=== PATIENT | female | born 1955 | race Caucasian/White ===

== ENCOUNTER 2017-12-28 18:30 | Inpatient (IN) | payer OTHER, MEDICARE ==
[2017-12-28 18:52] LABS: ADD MAN DIFF? NO
[2017-12-28 18:56] LABS: BASO % 1 % (0-3); EOS # 0.9 x10^3/uL (0.0-0.7); EOS % 12 % (0-3); HEMATOCRIT 43.4 % (36.0-47.0); HEMOGLOBIN 14.5 g/dL (12.0-15.5); LYMPH % 27 % (24-48); MEAN CORPUSCULAR HEMOGLOBIN 31 pg (25-35); MEAN CORPUSCULAR HGB CONC 34 g/dL (31-37); MEAN CORPUSCULAR VOLUME 91 fL (79-100); MONO # 0.8 x10^3/uL (0.0-1.1); MONO % 10 % (0-9); NEUT # 3.8 x10^3uL (1.8-7.7); NEUT % 50 % (31-73); PLATELET COUNT 232 x10^3/uL (140-400); RED BLOOD COUNT 4.75 x10^6/uL (3.50-5.40); RED CELL DISTRIBUTION WIDTH 14.2 % (11.5-14.5); WHITE BLOOD COUNT 7.5 x10^3/uL (4.0-11.0)
[2017-12-28] MEDS: methylPREDNISolone SOD SUCC PF 125 MG/2 ML VIAL. IV (19:01)
[2017-12-28 19:05] LABS: ANION GAP 0 (6-14); BLOOD UREA NITROGEN 6 mg/dL (7-20); BUN/CREATININE RATIO 8 (6-20); CALCIUM 8.6 mg/dL (8.5-10.1); CARBON DIOXIDE 37 mmol/L (21-32); CHLORIDE 105 mmol/L (98-107); CREATININE 0.8 mg/dL (0.6-1.0); GFR 72.7; GLUCOSE 89 mg/dL (70-99); POTASSIUM 4.2 mmol/L (3.5-5.1); SODIUM 142 mmol/L (136-145)
[2017-12-28 19:11] LABS: ALBUMIN 3.4 g/dL (3.4-5.0); ALK PHOS 52 U/L (46-116); ALT (SGPT) 16 U/L (14-59); AST (SGOT) 13 U/L (15-37); TOTAL BILIRUBIN 0.3 mg/dL (0.2-1.0); TOTAL PROTEIN 6.7 g/dL (6.4-8.2)
[2017-12-28 19:13] LABS: TROPONINI 0.023 ng/mL (0.000-0.055)
[2017-12-28 19:16] LABS: NT-PRO BNP 154 pg/mL (0-124)
[2017-12-28 19:40] LABS: LACTIC ACID 0.5 mmol/L (0.4-2.0)
[2017-12-28] MEDS: AZITHROMYCIN 250 MG TABLET. PO (19:57)
[2017-12-28] MEDS ORDERED: ALBUTEROL SULFATE 2.5 MG/3 ML NEBU. NEB (20:00)
[2017-12-28 20:14] LABS: D-DIMER 1.55 ug/mlFEU (0.00-0.50)
[2017-12-28] MEDS: oxyCODONE/APAP 7.5/325 1 TAB TABLET PO (20:19)
[2017-12-28] MEDS ORDERED: NON FORMULARY ITEM (Budesonide/Formoterol Fumarate (Symbicort 160-4.5 Mcg Inhaler) 2 PUFF) IH (21:00)
[2017-12-28] MEDS ORDERED: BUDESONIDE 0.5 MG/2 ML NEBU. NEB (21:00)
[2017-12-28] MEDS: traZODone 50 MG TABLET. PO (21:33)
[2017-12-28] MEDS: clonazePAM 1 MG TABLET PO (21:34)
[2017-12-28] MEDS: SIMVASTATIN 20 MG TABLET PO (21:34)
[2017-12-28] MEDS: PRAZOSIN 1 MG CAPSULE. PO (21:34)
[2017-12-28] MEDS: BUDESONIDE 0.5 MG/2 ML NEBU. NEB (23:49)
[2017-12-29 00:16] LABS: BASE EXCESS ABG 4 mmol/L (-3-3); HCO3 ABG 32 mmol/L (21-28); PO2 ABG 89 mmHg (65-108); SAT O2 ABG 96 % (92-99)
[2017-12-29 00:21] LABS: PCO2 ABG 66 mmHg (35-46)
[2017-12-29] MEDS: IPRATRPIUM/ALBUTEROL 0.5/2.5MG 3 ML NEBU. NEB ×5 (04:36→20:04)
[2017-12-29] MEDS: oxyCODONE/APAP 7.5/325 1 TAB TABLET PO (04:38)
[2017-12-29] MEDS: BUDESONIDE 0.5 MG/2 ML NEBU. NEB ×2 (07:58→20:04)
[2017-12-29] MEDS ORDERED: IPRATRPIUM/ALBUTEROL 0.5/2.5MG 3 ML NEBU. NEB (08:00)
[2017-12-29] MEDS: VENLAFAXINE XR 37.5 MG CAP.ER.24H. PO (08:26)
[2017-12-29] MEDS: fentaNYL 25MCG/HR PATCH 1 PATCH PATCH.TD72 TD ×2 (08:27→08:34)
[2017-12-29] MEDS: methylPREDNISolone SOD SUCC PF 40 MG/ML VIAL. IV ×3 (08:28→20:36)
[2017-12-29] MEDS ORDERED: IBUPROFEN 600 MG TABLET. PO (09:00)
[2017-12-29] MEDS ORDERED: MORPHINE SULFATE 4 MG/ML DISP.SYRIN. IV (09:00)
[2017-12-29] MEDS ORDERED: HYDROCORTISONE 2.5% RECTAL CREAM 30GM TUBE. RC (09:00)
[2017-12-29] MEDS ORDERED: guaiFENesin DM 200MG/20MG 10 ML SYRUP PO (09:00)
[2017-12-29] MEDS ORDERED: TEMAZEPAM 7.5 MG CAPSULE PO (09:00)
[2017-12-29] MEDS: HYDROcodone/APAP 5/325MG 1 TAB TABLET PO (09:07)
[2017-12-29] MEDS ORDERED: BUDESONIDE 0.5 MG/2 ML NEBU. NEB (10:00)
[2017-12-29] MEDS: ENOXAPARIN 40 MG/0.4 ML SYRINGE. SQ (10:05)
[2017-12-29] MEDS: IOHEXOL 300 MG/ML 100ML VIAL. IV (10:15)
[2017-12-29 10:36] LABS: INFLUENZA A PATIENT NEGATIVE (NEGATIVE); INFLUENZA B PATIENT NEGATIVE (NEGATIVE); OBC FLU VALID
[2017-12-29] MEDS: LIDOCAINE (700MG/PATCH) PATCH. TD (11:15)
[2017-12-29] MEDS: FLUTICASONE 50MCG/NASAL SPRAY 16GM BOTTLE. NS (11:15)
[2017-12-29] MEDS: CETIRIZINE HCL 10 MG TABLET. PO (11:15)
[2017-12-29] MEDS: PANTOPRAZOLE 40 MG TABLET.DR. PO (11:15)
[2017-12-29] MEDS: oxyCODONE/APAP 10/325 1 TAB TABLET PO (14:01)
[2017-12-29] MEDS: LACTOBACILLUS RHAMNOSUS GG 1 CAPSULE. PO (20:35)
[2017-12-29] MEDS: MONTELUKAST SODIUM 10 MG TABLET. PO (20:35)
[2017-12-29] MEDS: PRAZOSIN 1 MG CAPSULE. PO (20:35)
[2017-12-29] MEDS: SIMVASTATIN 20 MG TABLET PO (20:35)
[2017-12-29] MEDS: clonazePAM 1 MG TABLET PO (20:36)
[2017-12-29] MEDS: traZODone 50 MG TABLET. PO (20:36)
[2017-12-30] MEDS: IPRATRPIUM/ALBUTEROL 0.5/2.5MG 3 ML NEBU. NEB ×4 (07:29→20:28)
[2017-12-30] MEDS: BUDESONIDE 0.5 MG/2 ML NEBU. NEB ×2 (07:30→20:28)
[2017-12-30] MEDS: PANTOPRAZOLE 40 MG TABLET.DR. PO (07:48)
[2017-12-30] MEDS: LACTOBACILLUS RHAMNOSUS GG 1 CAPSULE. PO ×2 (07:48→20:48)
[2017-12-30] MEDS: CETIRIZINE HCL 10 MG TABLET. PO (07:48)
[2017-12-30] MEDS: VENLAFAXINE XR 37.5 MG CAP.ER.24H. PO (07:48)
[2017-12-30] MEDS: methylPREDNISolone SOD SUCC PF 40 MG/ML VIAL. IV ×3 (07:49→20:50)
[2017-12-30] MEDS: FLUTICASONE 50MCG/NASAL SPRAY 16GM BOTTLE. NS (07:51)
[2017-12-30] MEDS: LIDOCAINE (700MG/PATCH) PATCH. TD (07:51)
[2017-12-30] MEDS: ENOXAPARIN 40 MG/0.4 ML SYRINGE. SQ (10:10)
[2017-12-30] MEDS: oxyCODONE/APAP 10/325 1 TAB TABLET PO ×2 (11:39→19:28)
[2017-12-30] MEDS: MONTELUKAST SODIUM 10 MG TABLET. PO (20:48)
[2017-12-30] MEDS: clonazePAM 1 MG TABLET PO (20:48)
[2017-12-30] MEDS: SIMVASTATIN 20 MG TABLET PO (20:48)
[2017-12-30] MEDS: traZODone 50 MG TABLET. PO (20:49)
[2017-12-30] MEDS: PRAZOSIN 1 MG CAPSULE. PO (20:49)
[2017-12-31] MEDS: PANTOPRAZOLE 40 MG TABLET.DR. PO (07:44)
[2017-12-31] MEDS: oxyCODONE/APAP 10/325 1 TAB TABLET PO ×2 (07:44→12:38)
[2017-12-31] MEDS: IPRATRPIUM/ALBUTEROL 0.5/2.5MG 3 ML NEBU. NEB ×2 (07:52→11:53)
[2017-12-31] MEDS: BUDESONIDE 0.5 MG/2 ML NEBU. NEB (07:52)
[2017-12-31] MEDS: VENLAFAXINE XR 37.5 MG CAP.ER.24H. PO (08:49)
[2017-12-31] MEDS: LACTOBACILLUS RHAMNOSUS GG 1 CAPSULE. PO (08:49)
[2017-12-31] MEDS: CETIRIZINE HCL 10 MG TABLET. PO (08:49)
[2017-12-31] MEDS: LIDOCAINE (700MG/PATCH) PATCH. TD (08:50)
[2017-12-31] MEDS: methylPREDNISolone SOD SUCC PF 40 MG/ML VIAL. IV (08:50)
[2017-12-31] MEDS: FLUTICASONE 50MCG/NASAL SPRAY 16GM BOTTLE. NS (08:50)
[2017-12-31] MEDS: ENOXAPARIN 40 MG/0.4 ML SYRINGE. SQ (10:20)
[2017-12-31 22:12] LABS: MRSA BY PCR Negative (Negative)
[2018-01-01] MEDS ORDERED: predniSONE 20 MG TABLET PO (09:00)
== END 2017-12-31 13:30 | disposition home or self-care (01) | DRG 189 ==
LOC: ER 18:30 → 2 NORTH 20:37
PROC: 5A09357 Assistance with Respiratory Ventilation, Less than 24 Consecutive Hours, Continuous Positive Airway Pressure (ICD-10-PCS; 2017-12-28)
PROC: 5A09357 Assistance with Respiratory Ventilation, Less than 24 Consecutive Hours, Continuous Positive Airway Pressure (ICD-10-PCS; principal; 2017-12-29)
DX: J96.21 Acute and chronic respiratory failure with hypoxia (principal); J44.0 Chronic obstructive pulmonary disease with (acute) lower respiratory infection; Z99.81 Dependence on supplemental oxygen; J44.1 Chronic obstructive pulmonary disease with (acute) exacerbation; I10 Essential (primary) hypertension; Z82.49 Family history of ischemic heart disease and other diseases of the circulatory system; K21.9 Gastro-esophageal reflux disease without esophagitis; M54.9 Dorsalgia, unspecified; G89.29 Other chronic pain; M19.90 Unspecified osteoarthritis, unspecified site; G47.33 Obstructive sleep apnea (adult) (pediatric); F17.200 Nicotine dependence, unspecified, uncomplicated; J20.9 Acute bronchitis, unspecified; Z83.3 Family history of diabetes mellitus; Z71.6 Tobacco abuse counseling; Z88.1 Allergy status to other antibiotic agents; Z88.8 Allergy status to other drugs, medicaments and biological substances; Z80.1 Family history of malignant neoplasm of trachea, bronchus and lung; Z88.5 Allergy status to narcotic agent
CPT/HCPCS: 36415; 36600; 71045; 73701; 80053; 82805; 83605; 83880; 84484; 85025; 85379; 85610; 87040; 87641; 87804; 87804-59; 93005; 93970; 94640; 94660; 94760; 96374; 97116-GP; 97161-GP; 97166-GO; 99285; 99285-25; J1650; J2920; J2930; J7620; J7626; Q0144; Q9967

== ENCOUNTER 2018-08-06 10:32 | Emergency (ER) | payer OTHER ==
[~2018-08-06] VITALS: Ht 170.2 cm; Wt 68.0 kg
[~2018-08-06 10:32] MED LIST: ALEN70TA3 PO; ALPR0.5T6 PO; ATROVENT HFA12.9 GM IH; BENZ200C47 PO; BREX2TAB PO; BUDE10.2 IH; CLON1TAB11 PO; DOXY100T PO; DULO30CA43 PO; FENT1PAT15 TP; HYDR30CR60 RC; IBUP-1007 PO; LEVO500T59 PO; LORA1TAB PO; OXYC1TAB19 PO; OXYC1TAB22 PO; PRAZ2CAP2 PO; PRED-220 PO; PRED20TA PO; ROFL500T7 PO; SIMV20TA3 PO; TRAZ150T49 PO; UMEC1DIS IH; VENL37.57 PO; VENTOLIN HFA18 GM INH; VORT10TA PO
[2018-08-06] MEDS ORDERED: IV NORMAL SALINE 1000ML BAG 1,000 ML IV SCH (10:53)
[2018-08-06] MEDS ORDERED: IPRATRPIUM/ALBUTEROL 0.5/2.5MG 3 ML NEBU. NEB ONE (11:00)
[2018-08-06] MEDS ORDERED: methylPREDNISolone SOD SUCC PF 125 MG/2 ML VIAL. IV ONE (11:00)
--- NOTE | 2018-08-06 11:10 | PHYS DOC ---
Past Medical History Past Medical History: COPD, Depression, Sciatica Additional Past Medical Histor: "BACK PROBLEMS", TREMORS, EMPHYSEMA Past Surgical History: Other Additional Past Surgical Histo: breast tumor removal Smoking: Cigarettes, 1 Pack Per Day Alcohol Use: None Drug Use: None Adult General Chief Complaint Chief Complaint: SHORTNESS OF BREATH HPI HPI Pt is a 63 y/o WF who has a past Hx of COPD who presents to the ED for evaluation via EMS. She states that for the past several days she has had increasing SOB, along with a non-productive cough. She denies any chest pain, or pleuritic pain, fevers or chills. She has not had any other painful areas, has not had any abdominal pain, nausea, vomiting, diarrhea, palpitations, orthopnea. Unfortunately, she continues to smoke. She did receive a DuoNeb via EMS. There are no other alleviating or exacerbating factors to the patient's symptoms. She is noted to have an oxygenation saturation of 97% on room air upon arrival, but states that she does wear oxygen 4 L at home chronically. Review of Systems Review of Systems Constitutional: Denies fever or chills [] Eyes: Denies change in visual acuity, redness, or eye pain [] HENT: Denies nasal congestion or sore throat [] Respiratory: No additional information not addressed in HPI [] Cardiovascular: No additional information not addressed in HPI [] GI: Denies abdominal pain, nausea, vomiting, bloody stools or diarrhea [] : Denies dysuria or hematuria [] Musculoskeletal: Denies back pain or joint pain [] Integument: Denies rash or skin lesions [] Neurologic: Denies headache, focal weakness or sensory changes [] Endocrine: Denies polyuria or polydipsia [] Psychiatric: Reports anxiety, denies depression or suicidal ideation. All other systems were reviewed and found to be within normal limits, except as documented in this note. Current Medications Current Medications Current Medications Medications (Trade) Dose Ordered Sig/Deysi Start Time Stop Time Status Last Admin Dose Admin Albuterol/ Ipratropium (Duoneb) 3 ml 1X ONCE 08/06/18 11:00 08/06/18 11:09 DC 08/06/18 11:14 3 ML Lorazepam (Ativan) 1 mg 1X ONCE 08/06/18 11:00 08/06/18 11:09 DC 08/06/18 11:39 1 MG Methylprednisolone Sodium Succinate (SOLU-Medrol 125MG VIAL) 60 mg 1X ONCE 08/06/18 11:00 08/06/18 11:09 DC 08/06/18 11:41 60 MG Sodium Chloride 1,000 ml @ 100 mls/hr Q10H 08/06/18 10:53 08/06/18 20:52 08/06/18 11:36 100 MLS/HR Allergies Allergies Allergies Coded Allergies Type Severity Reaction Last Updated Verified amoxicillin Adverse Reaction Mild gi upset 04/20/16 Yes clavulanic acid Adverse Reaction Mild gi upset 04/20/16 Yes doxycycline Adverse Reaction Mild gi upset 04/20/16 Yes Physical Exam Physical Exam PHYSICAL EXAM: CONSTITUTIONAL: Well developed, well nourished HEAD: normocephalic, atraumatic EENT: PERRL, EOMI. Conjunctivae normal color, sclerae non-icteric; moist mucous membranes. NECK: Supple, non-tender; no meningismus. LUNGS: There are diffuse coarse expiratory wheezes, scattered all lung knox, with no rales or rhonchi, breathing even and unlabored. Normal air movement. HEART: Regular rate and rhythm, no murmur CHEST: No deformity; non-tender ABDOMEN: The abdomen is soft, and non-tender, no masses or bruits. EXTREM: Normal ROM; no deformity, no calf tenderness. Normal pulses palpable in all extremities. There is no pedal edema. SKIN: No rash; no diaphoresis NEURO: Alert; normal speech and cognition; CN's grossly intact; strength grossly intact without focal deficit. BACK: No CVA TTP. PSYCHIATRIC: The patient does exhibit an anxious affect. Current Patient Data Vital Signs Vital Signs Date Time Temp Pulse Resp B/P (MAP) Pulse Ox O2 Delivery O2 Flow Rate FiO2 08/06/18 11:35 74 28 116/62 (80) 94 Room Air 08/06/18 10:41 97.8 97.8 Lab Values Laboratory Tests Test 08/06/18 11:00 White Blood Count 16.2 x10^3/uL (4.0-11.0) H Red Blood Count 4.71 x10^6/uL (3.50-5.40) Hemoglobin 14.5 g/dL (12.0-15.5) Hematocrit 42.6 % (36.0-47.0) Mean Corpuscular Volume 91 fL (79-100) Mean Corpuscular Hemoglobin 31 pg (25-35) Mean Corpuscular Hemoglobin Concent 34 g/dL (31-37) Red Cell Distribution Width 14.0 % (11.5-14.5) Platelet Count 256 x10^3/uL (140-400) Neutrophils (%) (Auto) 84 % (31-73) H Lymphocytes (%) (Auto) 10 % (24-48) L Monocytes (%) (Auto) 4 % (0-9) Eosinophils (%) (Auto) 1 % (0-3) Basophils (%) (Auto) 0 % (0-3) Neutrophils # (Auto) 13.6 x10^3uL (1.8-7.7) H Lymphocytes # (Auto) 1.7 x10^3/uL (1.0-4.8) Monocytes # (Auto) 0.7 x10^3/uL (0.0-1.1) Eosinophils # (Auto) 0.2 x10^3/uL (0.0-0.7) Basophils # (Auto) 0.1 x10^3/uL (0.0-0.2) Segmented Neutrophils % 80 % (35-66) H Band Neutrophils % 4 % (0-9) Lymphocytes % 9 % (24-48) L Monocytes % 6 % (0-10) Basophils % 1 % (0-3) Platelet Estimate Adequate (ADEQUATE) Sodium Level 142 mmol/L (136-145) Potassium Level 3.5 mmol/L (3.5-5.1) Chloride Level 105 mmol/L (98-107) Carbon Dioxide Level 26 mmol/L (21-32) Anion Gap 11 (6-14) Blood Urea Nitrogen 14 mg/dL (7-20) Creatinine 0.9 mg/dL (0.6-1.0) Estimated GFR (Cockcroft-Gault) 63.2 BUN/Creatinine Ratio 16 (6-20) Glucose Level 110 mg/dL (70-99) H Calcium Level 9.4 mg/dL (8.5-10.1) Total Bilirubin 0.6 mg/dL (0.2-1.0) Aspartate Amino Transferase (AST) 9 U/L (15-37) L Alanine Aminotransferase (ALT) 21 U/L (14-59) Alkaline Phosphatase 51 U/L (46-116) Creatine Kinase 21 U/L (26-192) L Creatine Kinase MB (Mass) 0.6 ng/mL (0.0-3.6) Creatine Kinase MB Relative Index % (0-4) Troponin I Quantitative < 0.017 ng/mL (0.000-0.055) YU-Ddz-M-Type Natriuretic Peptide 214 pg/mL (0-124) H Total Protein 6.4 g/dL (6.4-8.2) Albumin 3.5 g/dL (3.4-5.0) Albumin/Globulin Ratio 1.2 (1.0-1.7) Laboratory Tests 08/06/18 11:00 Laboratory Tests 08/06/18 11:00 EKG EKG [Normal sinus rhythm at a rate of 70 beats for minute, normal axis, normal intervals, there are no acute ischemic ST/T changes.] Radiology/Procedures Radiology/Procedures [PROCEDURE: CHEST PA & LATERAL CHEST PA LATERAL CLINICAL INDICATION: short of breath and weakness for several days COMPARISON: 04/12/2018 FINDINGS: Heart is normal in size. Lungs are hyperinflated with flattening of diaphragm. Multiple calcified nodular opacities are seen in the left midlung zone likely calcified granulomas or prior aspirated oral contrast. Lungs are clear of focal consolidation. Mild diffuse interstitial opacities are seen. No pneumothorax or pleural effusion. Visualized bony thorax is within normal limits. Most likely retained catheter fragments or wire are seen in the right proximal pulmonary arterial vasculature and right main pulmonary artery also seen on previous CT from 04/12/2018. IMPRESSION: 1. Findings of COPD. Superimposed mild interstitial infection not ruled out. ] Course & Med Decision Making Course & Med Decision Making Pertinent Labs and Imaging studies reviewed. (See chart for details) [1:10 PM: The patient's condition remains stable, she is feeling significantly better at this time. She appears in no distress with an oxygen saturation in the upper 90s on room air. She does wear oxygen at home. She states she was recently seen at and is currently on prednisone. This might explain her leukocytosis. She does not think she is on antibiotics. I discussed the importance of close follow-up with her kit assembler at , and return precautions in detail.] Dragon Disclaimer Dragon Disclaimer This electronic medical record was generated, in whole or in part, using a voice recognition dictation system. Departure Departure Impression: Primary Impression: COPD exacerbation Additional Impression: Anxiety Disposition: 01 HOME, SELF-CARE Condition: IMPROVED Referrals: MITZI PRICE MD (PCP) Patient Instructions: Anxiety and Panic Attacks, Chronic Obstructive Pulmonary Disease Additional Instructions: Continue using your nebulizer machine every 6 hours, as needed for difficulty breathing. Continue taking your previously prescribed steroids. Return to medical care for any new, or worsening symptoms, development of increasing difficulty breathing, fevers, chills, nausea, vomiting. Scripts Azithromycin (AZITHROMYCIN TABLET) 250 Mg Tablet 1 PKG PO UD, #6 TAB Prov: VALERIE MARROQUIN MD 08/06/18 Problem Qualifiers VALERIE MARROQUIN MD Aug 06, 2018 11:10
[2018-08-06 11:16] LABS: BASO # 0.1 x10^3/uL (0.0-0.2); BASO % 0 % (0-3); EOS # 0.2 x10^3/uL (0.0-0.7); EOS % 1 % (0-3); HEMATOCRIT 42.6 % (36.0-47.0); HEMOGLOBIN 14.5 g/dL (12.0-15.5); LYMPH # 1.7 x10^3/uL (1.0-4.8); LYMPH % 10 % (24-48); MEAN CORPUSCULAR HEMOGLOBIN 31 pg (25-35); MEAN CORPUSCULAR HGB CONC 34 g/dL (31-37); MEAN CORPUSCULAR VOLUME 91 fL (79-100); MONO # 0.7 x10^3/uL (0.0-1.1); MONO % 4 % (0-9); NEUT # 13.6 x10^3uL (1.8-7.7); NEUT % 84 % (31-73); PLATELET COUNT 256 x10^3/uL (140-400); RED BLOOD COUNT 4.71 x10^6/uL (3.50-5.40); WHITE BLOOD COUNT 16.2 x10^3/uL (4.0-11.0)
[2018-08-06 11:33] LABS: ALBUMIN 3.5 g/dL (3.4-5.0); ALBUMIN/GLOBULIN RATIO 1.2 (1.0-1.7); CALCIUM 9.4 mg/dL (8.5-10.1); CREATININE 0.9 mg/dL (0.6-1.0); GFR 63.2; POTASSIUM 3.5 mmol/L (3.5-5.1); TOTAL BILIRUBIN 0.6 mg/dL (0.2-1.0); TOTAL PROTEIN 6.4 g/dL (6.4-8.2)
[2018-08-06 11:43] LABS: CREATINE KINASE 21 U/L (26-192)
--- NOTE | 2018-08-06 11:50 | RAD ---
CHEST PA LATERAL CLINICAL INDICATION: short of breath and weakness for several days COMPARISON: 04/12/2018 FINDINGS: Heart is normal in size. Lungs are hyperinflated with flattening of diaphragm. Multiple calcified nodular opacities are seen in the left midlung zone likely calcified granulomas or prior aspirated oral contrast. Lungs are clear of focal consolidation. Mild diffuse interstitial opacities are seen. No pneumothorax or pleural effusion. Visualized bony thorax is within normal limits. Most likely retained catheter fragments or wire are seen in the right proximal pulmonary arterial vasculature and right main pulmonary artery also seen on previous CT from 04/12/2018. IMPRESSION: 1. Findings of COPD. Superimposed mild interstitial infection not ruled out. Electronically signed by: Wesley Espinoza DO (08/06/2018 11:46 AM) [facility]
[2018-08-06 12:12] LABS: % BANDS 4 % (0-9); % BASOS 1 % (0-3); % LYMPHS 9 % (24-48); % MONOS 6 % (0-10); % SEGS 80 % (35-66)
[2018-08-06 12:13] LABS: PLT ESTIMATE ADEQUATE (ADEQUATE)
[2018-08-06 12:30] VITALS: BP 108/71
[2018-08-06] MEDS ORDERED: AZIT250T6 PO (13:16)
--- NOTE | 2018-08-06 17:52 | EKG ---
[facility] [address] [place] [address] Test Date: 2018-08-06 Test Time: 10:42:58 Pat Name: KARENA PISANO Department: Room: Gender: F Heavy Mobile Equipment Repairer: : 1955 Requested By: VALERIE MARROQUIN Order Number: [id number] Reading MD: Fermin Riddle Measurements Intervals [place] Rate: 69 P: 56 [place]: 122 QRS: 55 QRSD: 94 T: 58 QT: 396 QTc: 430 Interpretive Statements SINUS RHYTHM LEFT ATRIAL ABNORMALITY Electronically Signed On 08-14-2018 8:07:47 TERRITORY SALES MANAGER MEDICAL by Fermin Riddle
[2018-08-14] MEDS ORDERED: ALBU2.5V5 IH (15:18)
[2018-08-14] MEDS ORDERED: SENN1TAB21 PO (15:18)
== END 2018-08-06 13:25 | disposition home or self-care (01) ==
LOC: ER 10:32
DX: J44.1 Chronic obstructive pulmonary disease with (acute) exacerbation (principal); F41.9 Anxiety disorder, unspecified; F17.210 Nicotine dependence, cigarettes, uncomplicated; F32.9 Major depressive disorder, single episode, unspecified; Z88.1 Allergy status to other antibiotic agents; Z88.8 Allergy status to other drugs, medicaments and biological substances
CPT/HCPCS: 36415; 71046; 80053; 82553; 83880; 84484; 85007; 85025; 93005; 94640; 96374; 96375; 99284; J2060; J2930; J7030; J7620

== ENCOUNTER 2018-10-16 10:29 | Inpatient (IN) | payer OTHER ==
[~2018-10-16] VITALS: Ht 170.2 cm; Wt 59.0 kg
[~2018-10-16 10:29] MED LIST changes: +ALBU2.5V5 IH; +AZIT250T6 PO; +FAMO20TA5 PO; +LACT1CAP19 PO; +Nicotine 21MG TD; +PRED50TA PO; +SENN1TAB62 PO
--- NOTE | 2018-10-16 10:54 | PHYS DOC ---
Past Medical History Past Medical History: COPD, Depression, Sciatica Additional Past Medical Histor: "BACK PROBLEMS", TREMORS, EMPHYSEMA Past Surgical History: Other Additional Past Surgical Histo: breast tumor removal Alcohol Use: None Drug Use: None Adult General Chief Complaint Chief Complaint: SHORTNESS OF BREATH HPI HPI Patient is a 63 year old was brought here for evaluation of trouble breathing , productive cough with green sputum for the last 3 days. Patient has history of COPD, she is on 4 L of oxygen at home, continued to smoke. Patient denies any chest pain. she denies any fever or chill. She denies any abdominal pain, no nausea vomiting. Patient feels weak and tired. Review of Systems Review of Systems Constitutional: Denies fever or chills [] Eyes: Denies change in visual acuity, redness, or eye pain [] HENT: Denies nasal congestion or sore throat [] Respiratory: Positive for cough, shortness of air Cardiovascular: No additional information not addressed in HPI [] GI: Denies abdominal pain, nausea, vomiting, bloody stools or diarrhea [] : Denies dysuria or hematuria [] Musculoskeletal: Denies back pain or joint pain [] Integument: Denies rash or skin lesions [] Neurologic: Denies headache, focal weakness or sensory changes [] Endocrine: Denies polyuria or polydipsia [] All other systems were reviewed and found to be within normal limits, except as documented in this note. Current Medications Current Medications Current Medications Medications (Trade) Dose Ordered Sig/Deysi Start Time Stop Time Status Last Admin Dose Admin Acetaminophen (Tylenol) 650 mg PRN Q4HRS PRN 10/16/18 12:15 10/17/18 12:14 Albuterol/ Ipratropium (Duoneb) 3 ml RTQID 10/16/18 16:00 10/17/18 15:59 Levofloxacin/ Dextrose 150 ml @ 100 mls/hr 1X ONCE 10/16/18 11:30 10/16/18 12:59 10/16/18 11:42 100 MLS/HR Methylprednisolone Sodium Succinate (SOLU-Medrol 125MG VIAL) 125 mg 1X ONCE 10/16/18 11:00 10/16/18 11:01 DC 10/16/18 11:42 125 MG Ondansetron HCl (Zofran) 4 mg PRN Q8HRS PRN 10/16/18 12:15 10/17/18 12:14 Potassium Chloride (Klor-Con) 40 meq 1X ONCE 10/16/18 11:45 10/16/18 11:46 DC Sodium Chloride 1,000 ml @ 100 mls/hr Q10H 10/16/18 12:10 10/17/18 12:09 Allergies Allergies Allergies Coded Allergies Type Severity Reaction Last Updated Verified amoxicillin Adverse Reaction Mild gi upset 04/20/16 Yes clavulanic acid Adverse Reaction Mild gi upset 04/20/16 Yes doxycycline Adverse Reaction Mild gi upset 04/20/16 Yes Physical Exam Physical Exam Constitutional: Well developed, well nourished, no acute distress, non-toxic appearance. [] HENT: Normocephalic, atraumatic, bilateral external ears normal, oropharynx moist, no oral exudates, nose normal. [] Eyes: PERRLA, EOMI, conjunctiva normal, no discharge. [] Neck: Normal range of motion, no tenderness, supple, no stridor. [] Cardiovascular:Heart rate regular rhythm, no murmur [] Lungs & Thorax: WHEEZING THROUGHOUT ALL LUNG CEJA,TACHYPNIC. Abdomen: Bowel sounds normal, soft, no tenderness, no masses, no pulsatile masses. [] Skin: Warm, dry, no erythema, no rash. [] Back: No tenderness, no CVA tenderness. [] Extremities: No tenderness, no cyanosis, no clubbing, ROM intact, no edema. [] Neurologic: Alert and oriented X 3, normal motor function, normal sensory function, no focal deficits noted. [] Psychologic: Affect normal, judgement normal, mood normal. [] Current Patient Data Vital Signs Vital Signs Date Time Temp Pulse Resp B/P (MAP) Pulse Ox O2 Delivery O2 Flow Rate FiO2 10/16/18 11:10 99 Nasal Cannula 4.0 10/16/18 10:30 98.5 92 20 155/93 (113) 98.5 Lab Values Laboratory Tests Test 10/16/18 10:50 White Blood Count 15.4 x10^3/uL (4.0-11.0) H Red Blood Count 4.77 x10^6/uL (3.50-5.40) Hemoglobin 14.2 g/dL (12.0-15.5) Hematocrit 43.6 % (36.0-47.0) Mean Corpuscular Volume 91 fL (79-100) Mean Corpuscular Hemoglobin 30 pg (25-35) Mean Corpuscular Hemoglobin Concent 33 g/dL (31-37) Red Cell Distribution Width 14.7 % (11.5-14.5) H Platelet Count 225 x10^3/uL (140-400) Neutrophils (%) (Auto) 68 % (31-73) Lymphocytes (%) (Auto) 22 % (24-48) L Monocytes (%) (Auto) 8 % (0-9) Eosinophils (%) (Auto) 1 % (0-3) Basophils (%) (Auto) 0 % (0-3) Neutrophils # (Auto) 10.5 x10^3uL (1.8-7.7) H Lymphocytes # (Auto) 3.4 x10^3/uL (1.0-4.8) Monocytes # (Auto) 1.3 x10^3/uL (0.0-1.1) H Eosinophils # (Auto) 0.2 x10^3/uL (0.0-0.7) Basophils # (Auto) 0.0 x10^3/uL (0.0-0.2) Prothrombin Time 13.5 SEC (11.7-14.0) Prothrombin Time INR 1.1 (0.8-1.1) PTT 22 SEC (24-38) L Sodium Level 142 mmol/L (136-145) Potassium Level 3.0 mmol/L (3.5-5.1) L Chloride Level 103 mmol/L (98-107) Carbon Dioxide Level 33 mmol/L (21-32) H Anion Gap 6 (6-14) Blood Urea Nitrogen 15 mg/dL (7-20) Creatinine 0.8 mg/dL (0.6-1.0) Estimated GFR (Cockcroft-Gault) 72.4 BUN/Creatinine Ratio 19 (6-20) Glucose Level 104 mg/dL (70-99) H Lactic Acid Level 3.0 mmol/L (0.4-2.0) H Calcium Level 9.2 mg/dL (8.5-10.1) Total Bilirubin 0.3 mg/dL (0.2-1.0) Aspartate Amino Transferase (AST) 14 U/L (15-37) L Alanine Aminotransferase (ALT) 40 U/L (14-59) Alkaline Phosphatase 63 U/L (46-116) Creatine Kinase 14 U/L (26-192) L Creatine Kinase MB (Mass) 0.9 ng/mL (0.0-3.6) Creatine Kinase MB Relative Index % (0-4) BO-Fsx-V-Type Natriuretic Peptide 408 pg/mL (0-124) H Total Protein 6.4 g/dL (6.4-8.2) Albumin 3.3 g/dL (3.4-5.0) L Albumin/Globulin Ratio 1.1 (1.0-1.7) Laboratory Tests 10/16/18 10:50 Laboratory Tests 10/16/18 10:50 EKG EKG EKG WAS READ BY THIS PHYSICIAN AT 1038, RATE OF 98 BPM, NO STEMI. SINUS RHYTHM. [] Radiology/Procedures Radiology/Procedures [facility] [address] [place] [address] IMAGING REPORT Signed PATIENT: KARENA PISANO ACCOUNT: [id number] : 1955 LOCATION: ER AGE: 63 SEX: F EXAM STATUS: REG ER ORD. PHYSICIAN: ADITYA DONOVAN DO REASON: soa, cough PROCEDURE: PORTABLE CHEST 1V EXAM: AP View of the chest DATE: 10/16/2018 10:52 AM INDICATION: Shortness of air, cough COMPARISON: 08/23/2018, 08/14/2018 FINDINGS: Calcified granulomas bilaterally most prominent within the and left mid lung. No lobar consolidation. Heart is not enlarged. Aorta is tortuous. Linear radiopaque densities, possibly catheter or wire fragments, particularly on prior CT. Emphysematous changes are seen. No pleural effusion or pneumothorax. IMPRESSION: 1. Minimal bibasilar patchy opacities possibly atelectasis. 2. Otherwise, no evidence for acute cardiopulmonary process. Electronically signed by: Hang Asif MD (10/16/2018 11:20 AM) [id number] DICTATED and SIGNED BY: HANG ASIF MD DATE: 10/16/18 1111 Course & Med Decision Making Course & Med Decision Making Pertinent Labs and Imaging studies reviewed. (See chart for details) [] Dragon Disclaimer Dragon Disclaimer This electronic medical record was generated, in whole or in part, using a voice recognition dictation system. Departure Departure Impression: Primary Impression: COPD exacerbation Additional Impressions: CAP (community acquired pneumonia) Sepsis Disposition: 09 ADMITTED INPATIENT Admitting Physician: Mya Limon Condition: IMPROVED Referrals: MITZI PRICE MD (PCP) Problem Qualifiers ADITYA DONOVAN DO Oct 16, 2018 10:54
[2018-10-16] MEDS ORDERED: methylPREDNISolone SOD SUCC PF 125 MG/2 ML VIAL. IV ONE (11:00)
[2018-10-16] MEDS ORDERED: IPRATRPIUM/ALBUTEROL 0.5/2.5MG 3 ML NEBU. NEB ONE (11:00)
[2018-10-16 11:15] LABS: BASO % 0 % (0-3); EOS # 0.2 x10^3/uL (0.0-0.7); EOS % 1 % (0-3); HEMATOCRIT 43.6 % (36.0-47.0); HEMOGLOBIN 14.2 g/dL (12.0-15.5); LYMPH # 3.4 x10^3/uL (1.0-4.8); LYMPH % 22 % (24-48); MEAN CORPUSCULAR HEMOGLOBIN 30 pg (25-35); MEAN CORPUSCULAR HGB CONC 33 g/dL (31-37); MEAN CORPUSCULAR VOLUME 91 fL (79-100); MONO # 1.3 x10^3/uL (0.0-1.1); MONO % 8 % (0-9); NEUT # 10.5 x10^3uL (1.8-7.7); NEUT % 68 % (31-73); PLATELET COUNT 225 x10^3/uL (140-400); RED BLOOD COUNT 4.77 x10^6/uL (3.50-5.40); RED CELL DISTRIBUTION WIDTH 14.7 % (11.5-14.5); WHITE BLOOD COUNT 15.4 x10^3/uL (4.0-11.0)
[2018-10-16 11:23] LABS: CALCIUM 9.2 mg/dL (8.5-10.1); CREATININE 0.8 mg/dL (0.6-1.0); GFR 72.4
--- NOTE | 2018-10-16 11:23 | RAD ---
EXAM: AP View of the chest DATE: 10/16/2018 10:52 AM INDICATION: Shortness of air, cough COMPARISON: 08/23/2018, 08/14/2018 FINDINGS: Calcified granulomas bilaterally most prominent within the and left mid lung. No lobar consolidation. Heart is not enlarged. Aorta is tortuous. Linear radiopaque densities, possibly catheter or wire fragments, particularly on prior CT. Emphysematous changes are seen. No pleural effusion or pneumothorax. IMPRESSION: 1. Minimal bibasilar patchy opacities possibly atelectasis. 2. Otherwise, no evidence for acute cardiopulmonary process. Electronically signed by: Hang Anguiano MD (10/16/2018 11:20 AM) [id number]
[2018-10-16 11:27] LABS: PROTHROMBIN TIME PATIENT 13.5 SEC (11.7-14.0)
[2018-10-16 11:29] LABS: ALBUMIN 3.3 g/dL (3.4-5.0); ALBUMIN/GLOBULIN RATIO 1.1 (1.0-1.7); TOTAL BILIRUBIN 0.3 mg/dL (0.2-1.0); TOTAL PROTEIN 6.4 g/dL (6.4-8.2)
--- NOTE | 2018-10-16 11:31 | EKG ---
[facility] [address] [place] [address] Test Date: 2018-10-16 Test Time: 10:38:17 Pat Name: KARENA PISANO Department: Room: Gender: F Triage Assistant: : 1955 Requested By: ADITYA DONOVAN Order Number: [id number] Reading MD: Goyo Ibarra MD Measurements Intervals [place] Rate: 98 P: 71 [place]: 128 QRS: 62 QRSD: 84 T: 43 QT: 340 QTc: 436 Interpretive Statements SINUS RHYTHM Electronically Signed On 10-17-2018 11:08:40 MERCHANDISING REPRESENTATIVE by Goyo Ibarra MD
[2018-10-16 11:36] LABS: CREATINE KINASE 14 U/L (26-192)
[2018-10-16] MEDS ORDERED: POTASSIUM CHLORIDE 20 MEQ TABLET.ER. PO ONE (11:45)
[2018-10-16] MEDS ORDERED: IV NORMAL SALINE 1000ML BAG 1,000 ML IV ONE (12:00)
[2018-10-16] MEDS ORDERED: ONDANSETRON PF 4 MG/2 ML VIAL. IV PRN (12:15)
[2018-10-16] MEDS ORDERED: ACETAMINOPHEN 325 MG TABLET. PO PRN (12:15)
--- NOTE | 2018-10-16 14:24 | HP ---
ADMIT DATE: 10/16/2018 CHIEF COMPLAINT: Shortness of breath. HISTORY OF PRESENT ILLNESS: The patient is a pleasant 63-year-old female who continues to smoke. She has COPD, presented to the ER today with shortness of breath, rated at 9/10. She has associated weakness and subjective fevers, productive cough. She tried taking some home meds, but that did not work. Describes it as agonizing, worse with moving. I discussed the case with the ER physician. We are going to admit the patient and give her IV antibiotics, breathing treatments, oxygen and steroids and consult Pulmonary. PAST MEDICAL HISTORY: COPD, depression, back pain, sciatica, tremors, breast tumor resection. ALLERGIES: None. FAMILY HISTORY: Diabetes. SOCIAL HISTORY: She smokes. No drinking or drugs. MEDICATIONS: Reviewed, please refer to the MRAD. She is on albuterol and steroids. REVIEW OF SYSTEMS: GENERAL: No history of weight change, weakness or fevers. SKIN: No bruising, hair changes or rashes. EYES: No blurred, double or loss of vision. NOSE AND THROAT: No history of nosebleeds, hoarseness or sore throat. HEART: No history of palpitations, chest pain or shortness of breath on exertion. LUNGS: She complains of shortness of breath. GASTROINTESTINAL: Denies changes in appetite, nausea, vomiting, diarrhea or constipation. GENITOURINARY: No history of frequency, urgency, hesitancy or nocturia. NEUROLOGIC: Denies history of numbness, tingling, tremor or weakness. PSYCHIATRIC: No history of panic, anxiety or depression. ENDOCRINE: No history of heat or cold intolerance, polyuria or polydipsia. EXTREMITIES: Denies muscle weakness, joint pain, pain on walking or stiffness. PHYSICAL EXAMINATION: VITAL SIGNS: Temperature afebrile, pulse 90, respirations 18, blood pressure 140/91. GENERAL: She is alert. HEART: Normal S1, S2. LUNGS: Coarse throughout. ABDOMEN: Soft. EXTREMITIES: No edema. SKIN: No rashes, very thin. ENDOCRINE: No thyromegaly. LYMPHATICS: No cervical nodes. HEMATOPOIETIC: No bruising. PSYCHIATRIC: She is anxious. LABORATORY DATA: White count 15, hemoglobin 14 and platelets 225. Potassium is low at 3. ASSESSMENT AND PLAN: Respiratory failure with pneumonia. The patient has been admitted. We will start IV antibiotics, breathing treatments, oxygen, IV steroids. Consult Pulmonary. Home meds. Deep venous thrombosis prophylaxis.. Full code. Frequent labs. PROGNOSIS: Guarded. THEODORA MUSA DO DR: DIAN/jaylan JOB#: [id number] / [id number]
[2018-10-16 15:00] VITALS: BP 135/81
[2018-10-16] MEDS ORDERED: ALPRAZolam 0.5 MG TABLET PO PRN (15:30)
[2018-10-16] MEDS ORDERED: IBUPROFEN 200 MG TABLET. PO PRN (15:45)
[2018-10-16] MEDS ORDERED: NON FORMULARY ITEM (Albuterol Sulfate (Ventolin Hfa Inhaler) 2 PUFF) INH SCH (16:00)
[2018-10-16] MEDS ORDERED: IPRATRPIUM/ALBUTEROL 0.5/2.5MG 3 ML NEBU. NEB SCH (16:00)
[2018-10-16] MEDS: IPRATRPIUM/ALBUTEROL 0.5/2.5MG 3 ML NEBU. NEB SCH ×2 (16:00→19:36)
[2018-10-16] MEDS: NICOTINE 21MG PATCH. TD SCH (16:30)
[2018-10-16] MEDS: DULoxetine HCL 30 MG CAPSULE.DR PO SCH (16:30)
[2018-10-16] MEDS: IV NORMAL SALINE 1000ML BAG 1,000 ML IV SCH ×2 (16:57→22:10)
[2018-10-16] MEDS: LORazepam 1 MG TABLET PO SCH (16:58)
[2018-10-16] MEDS: oxyCODONE/APAP 10/325 1 TAB TABLET PO PRN (16:58)
[2018-10-16] MEDS ORDERED: ALBUTEROL SULFATE 2.5 MG/3 ML NEBU. INH PRN (17:00)
[2018-10-16] MEDS ORDERED: NON FORMULARY ITEM (Ipratropium Bromide (Atrovent Hfa) 2 PUFF) IH SCH (17:00)
--- NOTE | 2018-10-16 17:01 | NUR ---
The patient, KARENA PISANO, 63 y/o, F admitted by THEODORA MUSA III, DO, was given written information regarding hospital policies, unit procedures and contact persons. Valuables were checked, logged and left with pt. Oriented to unit and schedules. Pt verbalized that she doesn't want to be admitted. She wants to go back home on hospice. Pt has been emotional and states she is scared about dying at home alone. Pt also states she wants to stay the night, get fluids then be discharged in the morning. Pt's plans to D/C back to Hospice tomorrow and continue with her plan of care. Pt states she still wants to be a DNR. Provider notified, ICU CRN notified, msg left for hospice. Consult for palliative care in place and SS for D/C planning.
[2018-10-16 19:00] VITALS: BP 146/84
[2018-10-16] MEDS: BUDESONIDE 0.5 MG/2 ML NEBU. NEB SCH (19:36)
[2018-10-16] MEDS ORDERED: BENZONATATE 100 MG CAPSULE. PO PRN (21:00)
[2018-10-16] MEDS ORDERED: NON FORMULARY ITEM (Budesonide/Formoterol Fumarate (Symbicort 160-4.5 Mcg Inhaler) 2 PUFF) IH SCH (21:00)
[2018-10-16] MEDS: LACTOBACILLUS RHAMNOSUS GG 1 CAPSULE. PO SCH (21:03)
[2018-10-16] MEDS: SENNOSIDES/DOCUSATE 8.6/50MG TABLET. PO SCH (21:03)
[2018-10-16] MEDS: FAMOTIDINE 20 MG TABLET. PO SCH (21:04)
[2018-10-16] MEDS: PRAZOSIN 1 MG CAPSULE. PO SCH (21:04)
[2018-10-16] MEDS: traZODone 100 MG TABLET. PO SCH (21:04)
[2018-10-16] MEDS: SIMVASTATIN 20 MG TABLET PO SCH (21:04)
[2018-10-16 22:42] VITALS: BP 113/60
[2018-10-17] MEDS: oxyCODONE/APAP 10/325 1 TAB TABLET PO PRN ×2 (02:55→09:44)
[2018-10-17] MEDS: IV NORMAL SALINE 1000ML BAG 1,000 ML IV SCH (02:58)
[2018-10-17 03:00] VITALS: BP 139/77
[2018-10-17 07:00] VITALS: BP 91/45
[2018-10-17] MEDS: BUDESONIDE 0.5 MG/2 ML NEBU. NEB SCH ×2 (08:00→19:51)
[2018-10-17] MEDS: IPRATRPIUM/ALBUTEROL 0.5/2.5MG 3 ML NEBU. NEB SCH ×4 (08:02→19:51)
[2018-10-17] MEDS: DULoxetine HCL 30 MG CAPSULE.DR PO SCH (09:00)
[2018-10-17] MEDS: NON FORMULARY ITEM (Brexpiprazole (Rexulti) 2 MG) PO SCH (09:00)
[2018-10-17] MEDS: NON FORMULARY ITEM (Vortioxetine Hydrobromide (Trintellix) 10 MG) PO SCH (09:00)
[2018-10-17] MEDS: NICOTINE 21MG PATCH. TD SCH (09:00)
[2018-10-17] MEDS: SENNOSIDES/DOCUSATE 8.6/50MG TABLET. PO SCH ×3 (09:00→20:34)
[2018-10-17] MEDS: LACTOBACILLUS RHAMNOSUS GG 1 CAPSULE. PO SCH ×2 (09:00→20:27)
--- NOTE | 2018-10-17 09:10 | NUR ---
JUSTIN following pt for anticipated dc needs. Chart reviewed. JUSTIN phoned [facility] and left a voice mail to hospice JUSTIN requesting a call back regarding pt. Will continue to follow. Addendum: 10/17/18 at 1350 by MARIE ANDERSON JUSTIN phoned hospice and spoke with Negrita at intake regarding pt. Negrita reported she will contact pt's team and have them call JUSTIN. Discussed with RN and physician.
--- NOTE | 2018-10-17 09:28 | NUR ---
IP: Pt does not need to be in contact precautions. Her hx of mrsa has been resolved with 2 consecutive negatives.
[2018-10-17] MEDS: LORazepam 1 MG TABLET PO SCH (09:43)
[2018-10-17 10:04] LABS: BILIRUBIN,URINE NEGATIVE (NEG); CLARITY,URINE CLOUDY; COLOR,URINE YELLOW; NITRITE,URINE NEGATIVE (NEG); PROTEIN,URINE NEGATIVE (NEG-TRACE); UROBILINOGEN,URINE 0.2 mg/dL (0.2 mg/dL)
[2018-10-17 10:19] LABS: SQUAMOUS EPITHELIAL CELL,UR FEW /LPF
[2018-10-17 10:20] LABS: BACTERIA,URINE FEW /HPF (0-FEW)
[2018-10-17] MEDS ORDERED: POTASSIUM CHLORIDE 20 MEQ TABLET.ER. PO SCH (10:45)
[2018-10-17 11:00] VITALS: BP 94/45
[2018-10-17] MEDS: predniSONE 10 MG TABLET PO SCH (12:14)
[2018-10-17 15:00] VITALS: BP 103/53
--- NOTE | 2018-10-17 15:52 | NUR ---
SW following pt. Spoke with Negrita at hospice. They are able to readmit pt as long as pt does not have f/u appointments to tx condition. RN ordered Palliative care to address goals of care. Will continue to follow.
--- NOTE | 2018-10-17 16:59 | NUR ---
Pt states she does not want to go home today. Decided she does want to be treated for pneumonia. Discussed with provider. Tx initiated. Continue to monitor
--- NOTE | 2018-10-17 18:50 | PDOC2 ---
PALLIATIVE CARE Palliative Care Note Palliative Care Consult requested by Dr. Michele to address goals of care/frequent admissions. Medical Assessment per medical record; COPD, pneumonia- depression, anxiety. Patient states she has daughter Austin who is supportive of care. Has been with Hospice but decided she didn't want to be alone and wanted to come to hospital. Tearful. Afraid to alone. Discussed Code Status; Patient requests DNR/DNI. Understands that she likely would without attempt at resuscitation. Discussed her concerns of being alone. She does have Medicaid which would allow her to live in a facility. Currently lives in an apartment with her boilers and pressure vessels inspector dog. Informed that hospice could continue to see her in a facility. She would like to have more discussion with her daughter Austin Plan: DRN/DNI. read and signed by patient----will need physician order and signature. Family meeting with daughter for further discussion. VIVI ESCOBAR Oct 17, 2018 18:50
--- NOTE | 2018-10-17 18:50 | PDOC ---
PROGRESS NOTES Chief Complaint Chief Complaint Acute COPD exacerbation Recurrent pneumonia? Small area of pleural thickening in the left lower lobe Emphysema with chronic hypoxic resp failure on 4L NCO2 continuous Chronic back pain on chronic opioids Depression Tobacco abuse Plan: consult PAT patient would like to explore the possibility of transitioning to hospice reassurance has been provided. continue current care with antibiotics and steroids. Vitals Vitals Vital Signs Date Time Temp Pulse Resp B/P (MAP) Pulse Ox O2 Delivery O2 Flow Rate FiO2 10/17/18 15:00 97.9 74 16 103/53 (70) 93 Nasal Cannula 4.0 97.9 Physical Exam Lungs: Wheezing Labs LABS Laboratory Tests Test 10/17/18 09:55 Urine Collection Type U bag Urine Color Yellow Urine Clarity Cloudy Urine pH 6.0 Urine Specific [place] 1.015 Urine Protein Negative mg/dL (NEG-TRACE) Urine Glucose (UA) 250 mg/dL (NEG) Urine Ketones (Stick) Negative mg/dL (NEG) Urine Blood Moderate (NEG) Urine Nitrite Negative (NEG) Urine Bilirubin Negative (NEG) Urine Urobilinogen Dipstick 0.2 mg/dL (0.2 mg/dL) Urine Leukocyte Esterase Negative (NEG) Urine RBC 3-5 /HPF (0-2) Urine WBC 5-10 /HPF (0-4) Urine Squamous Epithelial Cells Few /LPF Urine Bacteria Few /HPF (0-FEW) Urine Mucus Mod /LPF Review of Systems Review of Systems Pertinent as per history of present illness otherwise 14 point review of system is negative Assessment and Plan Assessmemt and Plan Problems Medical Problems: (1) CAP (community acquired pneumonia) Status: Acute (2) Sepsis Status: Acute Comment Review of Relevant I have reviewed the following items trae (where applicable) has been applied. Labs Laboratory Tests Test 10/16/18 10:50 10/16/18 16:25 10/17/18 09:55 White Blood Count 15.4 x10^3/uL (4.0-11.0) Red Blood Count 4.77 x10^6/uL (3.50-5.40) Hemoglobin 14.2 g/dL (12.0-15.5) Hematocrit 43.6 % (36.0-47.0) Mean Corpuscular Volume 91 fL (79-100) Mean Corpuscular Hemoglobin 30 pg (25-35) Mean Corpuscular Hemoglobin Concent 33 g/dL (31-37) Red Cell Distribution Width 14.7 % (11.5-14.5) Platelet Count 225 x10^3/uL (140-400) Neutrophils (%) (Auto) 68 % (31-73) Lymphocytes (%) (Auto) 22 % (24-48) Monocytes (%) (Auto) 8 % (0-9) Eosinophils (%) (Auto) 1 % (0-3) Basophils (%) (Auto) 0 % (0-3) Neutrophils # (Auto) 10.5 x10^3uL (1.8-7.7) Lymphocytes # (Auto) 3.4 x10^3/uL (1.0-4.8) Monocytes # (Auto) 1.3 x10^3/uL (0.0-1.1) Eosinophils # (Auto) 0.2 x10^3/uL (0.0-0.7) Basophils # (Auto) 0.0 x10^3/uL (0.0-0.2) Prothrombin Time 13.5 SEC (11.7-14.0) Prothromb Time International Ratio 1.1 (0.8-1.1) Activated Partial Thromboplast Time 22 SEC (24-38) Sodium Level 142 mmol/L (136-145) Potassium Level 3.0 mmol/L (3.5-5.1) Chloride Level 103 mmol/L (98-107) Carbon Dioxide Level 33 mmol/L (21-32) Anion Gap 6 (6-14) Blood Urea Nitrogen 15 mg/dL (7-20) Creatinine 0.8 mg/dL (0.6-1.0) Estimated GFR (Cockcroft-Gault) 72.4 BUN/Creatinine Ratio 19 (6-20) Glucose Level 104 mg/dL (70-99) Lactic Acid Level 3.0 mmol/L (0.4-2.0) 4.0 mmol/L (0.4-2.0) Calcium Level 9.2 mg/dL (8.5-10.1) Total Bilirubin 0.3 mg/dL (0.2-1.0) Aspartate Amino Transf (AST/SGOT) 14 U/L (15-37) Alanine Aminotransferase (ALT/SGPT) 40 U/L (14-59) Alkaline Phosphatase 63 U/L (46-116) Creatine Kinase 14 U/L (26-192) Creatine Kinase MB (Mass) 0.9 ng/mL (0.0-3.6) Creatine Kinase MB Relative Index % (0-4) Troponin I Quantitative 0.023 ng/mL (0.000-0.055) JD-Pnr-M-Type Natriuretic Peptide 408 pg/mL (0-124) Total Protein 6.4 g/dL (6.4-8.2) Albumin 3.3 g/dL (3.4-5.0) Albumin/Globulin Ratio 1.1 (1.0-1.7) Urine Collection Type U bag Urine Color Yellow Urine Clarity Cloudy Urine pH 6.0 Urine Specific [place] 1.015 Urine Protein Negative mg/dL (NEG-TRACE) Urine Glucose (UA) 250 mg/dL (NEG) Urine Ketones (Stick) Negative mg/dL (NEG) Urine Blood Moderate (NEG) Urine Nitrite Negative (NEG) Urine Bilirubin Negative (NEG) Urine Urobilinogen Dipstick 0.2 mg/dL (0.2 mg/dL) Urine Leukocyte Esterase Negative (NEG) Urine RBC 3-5 /HPF (0-2) Urine WBC 5-10 /HPF (0-4) Urine Squamous Epithelial Cells Few /LPF Urine Bacteria Few /HPF (0-FEW) Urine Mucus Mod /LPF Laboratory Tests Test 10/17/18 09:55 Urine Collection Type U bag Urine Color Yellow Urine Clarity Cloudy Urine pH 6.0 Urine Specific [place] 1.015 Urine Protein Negative mg/dL (NEG-TRACE) Urine Glucose (UA) 250 mg/dL (NEG) Urine Ketones (Stick) Negative mg/dL (NEG) Urine Blood Moderate (NEG) Urine Nitrite Negative (NEG) Urine Bilirubin Negative (NEG) Urine Urobilinogen Dipstick 0.2 mg/dL (0.2 mg/dL) Urine Leukocyte Esterase Negative (NEG) Urine RBC 3-5 /HPF (0-2) Urine WBC 5-10 /HPF (0-4) Urine Squamous Epithelial Cells Few /LPF Urine Bacteria Few /HPF (0-FEW) Urine Mucus Mod /LPF Microbiology 10/16/18 Blood Culture - Preliminary, Resulted NO GROWTH AFTER 1 DAY Medications Current Medications Methylprednisolone Sodium Succinate (SOLU-Medrol 125MG VIAL) 125 mg 1X ONCE IV Last administered on 10/16/18at 11:42; Start 3/6/19 at 11:00; Stop 10/16/18 at 11:01; Status DC Albuterol/ Ipratropium (Duoneb) 3 ml 1X ONCE NEB Last administered on at 11:09; Start 10/16/18 at 11:00; Stop 10/16/18 at 11:01; Status DC Levofloxacin/ Dextrose 150 ml @ 100 mls/hr 1X ONCE IV Last administered on 10/16/18at 11:42; Start 10/16/18 at 11:30; Stop 10/16/18 at 12:59; Status DC Potassium Chloride (Klor-Con) 40 meq 1X ONCE PO Last administered on 10/16/18at 12:35; Start 10/16/18 at 11:45; Stop 10/16/18 at 11:46; Status DC Sodium Chloride 1,000 ml @ 1,000 mls/hr 1X ONCE IV Last administered on at 12:15; Start 10/16/18 at 12:00; Stop 10/16/18 at 12:59; Status DC Ondansetron HCl (Zofran) 4 mg PRN Q8HRS PRN IV NAUSEA/VOMITING; Start 10/16/18 at 12:15; Stop 10/17/18 at 12:14; Status DC Sodium Chloride 1,000 ml @ 100 mls/hr Q10H IV Last administered on 10/17/18at 02 :58; Start 10/16/18 at 12:10; Stop 10/17/18 at 10:34; Status DC Acetaminophen (Tylenol) 650 mg PRN Q4HRS PRN PO FEVER; Start 10/16/18 at 12:15; Stop 10/17/18 at 12:14; Status DC Albuterol/ Ipratropium (Duoneb) 3 ml RTQID NEB Last administered on 10/16/18at 15 :15; Start 10/16/18 at 16:00; Stop 10/16/18 at 16:00; Status DC Albuterol Sulfate (Ventolin Neb Soln) 2.5 mg PRN QID PRN INH SHORTNESS OF BREATH; Start 10/16/18 at 17:00 Alprazolam (Xanax) 0.5 mg PRN TID PRN PO ANXIETY / AGITATION Last administered on 10/16/18 21:08; Start 10/16/18 at 15:30 Duloxetine HCl (Cymbalta) 90 mg DAILY PO ; Start 10/16/18 at 16:30 Famotidine (Pepcid) 20 mg QHS PO Last administered on 10/16/18 21:04; Start 10/16/18 at 21:00 Lactobacillus Rhamnosus (Culturelle) 1 cap BID PO Last administered on 21:03; Start 10/16/18 at 21:00 Lorazepam (Ativan) 1 mg DAILY PO Last administered on 10/17/18 09:43; Start 10/16/18 at 16:30 Oxycodone/ Acetaminophen (Percocet 10/325) 1 tab PRN Q6HRS PRN PO PAIN Last administered on 10/17/18 09:44; Start 10/16/18 at 15:30 Senna/Docusate Sodium (Senna Plus) 1 tab BID PO Last administered on 10/16/18 21:03; Start 10/16/18 at 21:00 Non-Formulary Medication (Albuterol Sulfate (Ventolin Hfa Inhaler)) 2 puff Q4HRS INH ; Start 10/16/18 at 16:00; Status UNV Non-Formulary Medication (Alendronate Sodium (Fosamax)) 1 tab WEEKLY PO ; Start 10/23/18 at 09:00; Status UNV Benzonatate (Tessalon Perle) 100 mg PRN TID PRN PO COUGH; Start 10/16/18 at 21: 00 Non-Formulary Medication (Brexpiprazole (Rexulti)) 2 mg DAILY PO ; Start at 09:00; Status UNV Non-Formulary Medication (Budesonide/ Formoterol Fumarate (Symbicort 160-4.5 Mcg Inhaler)) 2 puff BID IH ; Start 10/16/18 at 21:00; Status UNV Ibuprofen (Motrin) 600 mg PRN Q6HRS PRN PO INFLAMMATION Last administered on 21:08; Start 10/16/18 at 15:45 Non-Formulary Medication (Ipratropium [place] (Atrovent Hfa)) 2 puff QID IH ; Start 10/16/18 at 17:00; Status UNV Prazosin HCl (Minipress) 2 mg QHS PO Last administered on 10/16/18 21:04; Start 10/16/18 at 21:00 Simvastatin (Zocor) 20 mg HS PO Last administered on 10/16/18at 21:04; Start 10/16 at 21:00 Trazodone HCl (Desyrel) 300 mg QHS PO Last administered on 10/16/18at 21:04; Start 10/16/18 at 21:00 Non-Formulary Medication (Vortioxetine Hydrobromide (Trintellix)) 10 mg DAILY PO ; Start 10/17/18 at 09:00; Status UNV Nicotine (Nicoderm Cq 21mg) 1 patch DAILY TD ; Start 10/16/18 at 16:30 Albuterol/ Ipratropium (Duoneb) 3 ml RTQID NEB Last administered on 10/17/18at 14 :43; Start 10/16/18 at 16:00 Budesonide (Pulmicort) 0.5 mg RTBID NEB Last administered on 10/17/18at 08:00; Start 10/16/18 at 20:00 Levofloxacin/ Dextrose 150 ml @ 100 mls/hr Q24H IV Last administered on 11:52; Start 10/17/18 at 11:00 Prednisone (Prednisone) 50 mg DAILY PO Last administered on 10/17/18at 12:14; Start 10/17/18 at 11:30 Potassium Chloride (Klor-Con) 40 meq Q2H PO Last administered on 10/17/18at 11:51 ; Start 10/17/18 at 10:45; Stop 10/17/18 at 12:46; Status DC Active Scripts Active [Nicotine 21MG] 1 PATCH Patch 1 Patch TD DAILY 30 Days Prednisone 50 Mg Tablet 1 Tab PO DAILY 5 Days Levaquin (Levofloxacin) 500 Mg Tablet 1 Tab PO DAILY 7 Days Culturelle (Lactobacillus Rhamnosus Gg) 1 Each Cap.sprink 1 Cap PO BID 14 Days Famotidine 20 Mg Tablet 20 Mg PO QHS 30 Days Reported Albuterol Sulfate Neb Soln (Albuterol Sulfate) 2.5 Mg/3 Ml Vial.neb 3 Ml IH QID Senna Plus Tablet (Sennosides/Docusate Sodium) 1 Each Tablet 1 Tab PO BID Alprazolam 0.5 Mg Tablet 1 Tab PO TID PRN Duloxetine Hcl 30 Mg Capsule.dr 90 Mg PO DAILY Fosamax (Alendronate Sodium) 70 Mg Tablet 1 Tab PO WEEKLY Benzonatate 200 Mg Capsule 1 Cap PO TID PRN Percocet 10-325 Mg Tablet (Oxycodone/Acetaminophen) 1 Each Tablet 1 Tab PO PRN Q6HRS PRN Lorazepam 1 Mg Tablet 1 Mg PO DAILY Trintellix (Vortioxetine) 10 Mg Tablet 10 Mg PO DAILY Rexulti (Brexpiprazole) 2 Mg Tablet 2 Mg PO DAILY Prazosin Hcl 2 Mg Capsule 1 Cap PO QHS Simvastatin 20 Mg Tablet 20 Mg PO QHS Atrovent Hfa (Ipratropium [place]) 12.9 Gm Hfa.aer.ad 2 Puff IH QID Daliresp (Roflumilast) 500 Mcg Tablet 500 Mcg PO Ventolin Hfa Inhaler (Albuterol Sulfate) 18 Gm Hfa.aer.ad 2 Puff INH Q4HRS Ibuprofen 600 Mg Tablet 600 Mg PO PRN Q6HRS PRN Trazodone Hcl 150 Mg Tablet 300 Mg PO HS Symbicort 160-4.5 Mcg Inhaler (Budesonide/Formoterol Fumarate) 10.2 Gm Hfa.aer.ad 2 Puff IH BID Anoro Ellipta 62.5-25 Mcg Inh (Umeclidinium Brm/Vilanterol Tr) 1 Each Disk.w.dev 62.5 Each IH Vitals/I & O Vital Sign - Last 24 Hours 10/16/18 10/16/18 10/16/18 10/16/18 19:00 19:37 19:38 20:00 Temp 98.2 98.2 Pulse 94 Resp 15 B/P (MAP) 146/84 (104) Pulse Ox 100 95 95 O2 Delivery Nasal Cannula Nasal Cannula Nasal Cannula Nasal Cannula O2 Flow Rate 4.0 4.0 4.0 4.0 10/16/18 10/16/18 10/17/18 10/17/18 21:04 22:42 02:55 03:00 Temp 98.6 97.6 98.6 97.6 Pulse 94 69 86 Resp 15 18 20 B/P (MAP) 146/84 113/60 (77) 139/77 (97) Pulse Ox 100 96 O2 Delivery Nasal Cannula Nasal Cannula Nasal Cannula O2 Flow Rate 2.0 4.0 10/17/18 10/17/18 10/17/18 10/17/18 07:00 08:00 08:07 09:44 Temp 98.0 98.0 Pulse 70 Resp 16 18 B/P (MAP) 91/45 (60) Pulse Ox 95 93 O2 Delivery Nasal Cannula Nasal Cannula Room Air Nasal Cannula O2 Flow Rate 4.0 4.0 4.0 10/17/18 10/17/18 10/17/18 10/17/18 10:44 11:00 14:45 15:00 Temp 98.2 97.9 98.2 97.9 Pulse 93 74 Resp 22 18 16 B/P (MAP) 94/45 (61) 103/53 (70) Pulse Ox 92 94 93 O2 Delivery Nasal Cannula Nasal Cannula Room Air Nasal Cannula O2 Flow Rate 4.0 4.0 4.0 Intake and Output 10/16/18 10/16/18 10/17/18 14:59 22:59 06:59 Intake Total 300 ml 1200 ml Output Total 200 ml Balance 300 ml 1000 ml FLORENCIO ROSARIO MD Oct 17, 2018 18:50
[2018-10-17 19:00] VITALS: BP 116/63
[2018-10-17] MEDS: SIMVASTATIN 20 MG TABLET PO SCH (20:26)
[2018-10-17] MEDS: traZODone 100 MG TABLET. PO SCH (20:26)
[2018-10-17] MEDS: FAMOTIDINE 20 MG TABLET. PO SCH ×2 (20:26→20:34)
[2018-10-17] MEDS: PRAZOSIN 1 MG CAPSULE. PO SCH (20:26)
[2018-10-17 23:00] VITALS: BP 118/67
[2018-10-18 03:00] VITALS: BP 143/88
--- NOTE | 2018-10-18 06:27 | CONS ---
DATE OF CONSULTATION: 10/17/2018 ATTENDING PHYSICIAN: Dr. Limon. REASON FOR CONSULTATION: The patient seen in pulmonary consultation at the request of Dr. Limon for abnormal x-ray, hypoxemia. HISTORY OF PRESENT ILLNESS: The patient is a 63-year-old with a history of COPD, tobacco-dependent, depression, anxiety, who presented because she was more short of breath. She states that her nebulized machine at home was not working. She had a cough, productive of green sputum for the past 3 days. She had a chest x-ray revealing basilar atelectasis, which were mild. She denies fever or chills, no hemoptysis. She is up-to-date on her flu vaccination. PAST MEDICAL HISTORY: Chronic respiratory failure, COPD, tobacco-dependent, depression, sciatica. PAST SURGICAL HISTORY: Status post breast tumor removal. ALLERGIES: AUGMENTIN and DOXYCYCLINE. MEDICATIONS: List was reviewed. SOCIAL HISTORY: She continues to smoke, she has done so for 40 years. REVIEW OF SYSTEMS: As indicated above. Otherwise, the 10-point system was reviewed and negative. CURRENT MEDICATION: List was reviewed. PHYSICAL EXAMINATION: GENERAL: The patient got here for one time during my evaluation, she felt like she was going to . VITAL SIGNS: Her O2 saturation actually on room air was 98%. HEENT: Eyes, the sclerae were nonicteric. NECK: Jugular venous distention was not elevated. No lymphadenopathy. CHEST: Full expansion. LUNGS: Adequate airway flow with expiratory wheeze. CARDIOVASCULAR: Regular rate and rhythm with S1, S2, no S3. ABDOMEN: Soft, nontender, nondistended. EXTREMITIES: No clubbing, cyanosis or edema. NEUROLOGIC: The patient was awake, alert, following commands. A detailed neuro exam was not performed. LABORATORY DATA: Reviewed. White count was elevated. INR was 1.1. Electrolytes were noted. Potassium was low. Lactic acid level was elevated. IMPRESSION: 1. Acute exacerbation of chronic obstructive pulmonary disease. 2. Wneqq-wx-fololwm respiratory failure. 3. Anxiety and depression. 4. Abnormal x-ray. 5. Tobacco dependence. PLAN: 1. Continue current treatment with steroids, antibiotics. 2. Oxygen supplementation. 3. A 6-minute walk prior to discharge. 4. Spirometry. 5. Continue home medications. I do appreciate the privilege in sharing in the patient's care. JUDY NICK MD DR: Jun JOB#: [id number] / [id number]
[2018-10-18 07:00] VITALS: BP 135/75
[2018-10-18] MEDS: IPRATRPIUM/ALBUTEROL 0.5/2.5MG 3 ML NEBU. NEB SCH ×2 (07:53→11:29)
[2018-10-18] MEDS: BUDESONIDE 0.5 MG/2 ML NEBU. NEB SCH (07:54)
[2018-10-18] MEDS: LACTOBACILLUS RHAMNOSUS GG 1 CAPSULE. PO SCH (08:33)
[2018-10-18] MEDS: LORazepam 1 MG TABLET PO SCH (08:33)
[2018-10-18] MEDS: SENNOSIDES/DOCUSATE 8.6/50MG TABLET. PO SCH (08:33)
[2018-10-18] MEDS: predniSONE 10 MG TABLET PO SCH (08:34)
[2018-10-18] MEDS: DULoxetine HCL 30 MG CAPSULE.DR PO SCH (08:34)
[2018-10-18] MEDS: NICOTINE 21MG PATCH. TD SCH (08:51)
[2018-10-18] MEDS: NON FORMULARY ITEM (Vortioxetine Hydrobromide (Trintellix) 10 MG) PO SCH (09:00)
[2018-10-18] MEDS: NON FORMULARY ITEM (Brexpiprazole (Rexulti) 2 MG) PO SCH (09:00)
[2018-10-18 11:00] VITALS: BP 130/59
--- NOTE | 2018-10-18 11:10 | NUR ---
SW following pt. Spoke with pt at beside following up on her conversation with Palliative care. Pt reported she wants to go home with hospice. SW informed pt if she feels like she needs to go to a facility after going home she can request hospice agency to assist her. Pt verbalized understanding. Pt also reported she will have transportation. Physician notified for orders. MENDEZ SALCIDO.
[2018-10-18] MEDS ORDERED: LEVO500T59 PO (11:21)
[2018-10-18] MEDS ORDERED: PRED50TA PO (11:21)
--- NOTE | 2018-10-18 11:22 | SNU/HH DC ---
DISCHARGE ORDERS DISCHARGE INFORMATION: DISCHARGE DATE: Oct 18, 2018 FINAL DIAGNOSIS Problems Medical Problems: (1) CAP (community acquired pneumonia) Status: Acute (2) Sepsis Status: Acute CONDITION ON DISCHARGE: Stable HOSPICE: HOSPICE: Yes HOSPICE EVAL & TREAT: Yes POST DISCHARGE ORDERS: ACTIVITY ORDERS: Activity as tolerated WEIGHT BEARING STATUS: As tolerated DIET AFTER DISCHARGE: Cardiac TREATMENT/EQUIPMENT ORDERS: ADAPTIVE EQUIPMENT NEEDED: None RESPIRATORY EQUIPMENT NEEDED: Oxygen Physical Therapy For: Evalulation/Treatment Occupational Therapy For: Evaluation/Treatment Speech Language Pathology For: Evaluation/Treatment DISCHARGE MEDICATIONS: Home Meds Active Scripts Prednisone (PREDNISONE) 50 Mg Tablet, 1 TAB PO DAILY for copd for 5 Days, #5 TAB Prov:FLORENCIO ROSARIO MD 10/18/18 Levofloxacin (LEVAQUIN) 500 Mg Tablet, 1 TAB PO DAILY for cough/ copd for 5 Days , #5 TAB Prov:FLORENCIO ROSARIO MD 10/18/18 [Nicotine 21MG] 1 PATCH PATCH No Conflict Check, 1 PATCH TD DAILY for Nicotine dependence for 30 Days, #30 Prov:DAYANNA PHAM MD 08/25/18 Lactobacillus Rhamnosus Gg (CULTURELLE) 1 Each Cap.sprink, 1 CAP PO BID for supplement for 14 Days, #28 CAP Prov:JULIAN ORELLANA MD 08/17/18 Famotidine (FAMOTIDINE) 20 Mg Tablet, 20 MG PO QHS for stomach for 30 Days, #30 TAB Prov:JULAIN ORELLANA MD 08/17/18 Reported Medications Albuterol Sulfate (ALBUTEROL SULFATE NEB SOLN) 2.5 Mg/3 Ml Vial.neb, 3 ML IH QID for SOA 08/14/18 Sennosides/Docusate Sodium (SENNA PLUS TABLET) 1 Each Tablet, 1 TAB PO BID for constipation 08/14/18 Alprazolam (ALPRAZOLAM) 0.5 Mg Tablet, 1 TAB PO TID PRN for ANXIETY / AGITATION , #90 TAB 04/12/18 Duloxetine Hcl (DULOXETINE HCL) 30 Mg Capsule.dr, 90 MG PO DAILY, CAP 04/12/18 Alendronate Sodium (FOSAMAX) 70 Mg Tablet, 1 TAB PO WEEKLY, #4 TAB 11 Refills 04/12/18 Benzonatate (BENZONATATE) 200 Mg Capsule, 1 CAP PO TID PRN for COUGH, #30 CAP 04/12/18 Oxycodone/Apap 10-325 (PERCOCET 10-325 MG TABLET ) 1 Each Tablet, 1 TAB PO PRN Q6HRS PRN for PAIN, #40 TAB 04/12/18 Lorazepam (LORAZEPAM) 1 Mg Tablet, 1 MG PO DAILY, TAB 04/12/18 Vortioxetine Hydrobromide (TRINTELLIX) 10 Mg Tablet, 10 MG PO DAILY, TAB 04/12/18 Brexpiprazole (Rexulti) 2 Mg Tablet, 2 MG PO DAILY, TAB 04/12/18 Prazosin Hcl (PRAZOSIN HCL) 2 Mg Capsule, 1 CAP PO QHS, #30 CAP 2 Refills 04/20/16 Simvastatin (SIMVASTATIN) 20 Mg Tablet, 20 MG PO QHS, TAB 04/20/16 Ipratropium [place] (ATROVENT HFA) 12.9 Gm Hfa.aer.ad, 2 PUFF IH QID, #12.9 GM 5 Refills 04/20/16 Roflumilast (DALIRESP) 500 Mcg Tablet, 500 MCG PO 04/20/16 Albuterol Sulfate (VENTOLIN HFA INHALER) 18 Gm Hfa.aer.ad, 2 PUFF INH Q4HRS for FOR ASTHMA, INHALER 0 Refills 04/20/16 Ibuprofen (IBUPROFEN) 600 Mg Tablet, 600 MG PO PRN Q6HRS PRN for INFLAMMATION, TAB 04/20/16 Trazodone Hcl (TRAZODONE HCL) 150 Mg Tablet, 300 MG PO HS, #30 TAB 1 Refill 04/20/16 Budesonide/Formoterol Fumarate (SYMBICORT 160-4.5 MCG INHALER) 10.2 Gm Hfa.aer.ad, 2 PUFF IH BID, #10.6 GM 3 Refills 04/20/16 Umeclidinium Brm/Vilanterol Tr (ANORO ELLIPTA 62.5-25 MCG INH) 1 Each Disk.w.dev , 62.5 EACH IH 04/20/16 FLORENCIO ROSARIO MD Oct 18, 2018 11:22
--- NOTE | 2018-10-18 11:25 | PDOC3 ---
Discharge Summary Visit Information Date of Admission: Oct 16, 2018 Date of Discharge: Oct 18, 2018 Admitting Diagnosis: community acquired pneumonia Final Diagnosis Problems Medical Problems: (1) CAP (community acquired pneumonia) Status: Acute (2) Sepsis Status: Acute Brief Hospital Course Allergies Allergies Coded Allergies Type Severity Reaction Last Updated Verified amoxicillin Adverse Reaction Mild gi upset 04/20/16 Yes clavulanic acid Adverse Reaction Mild gi upset 04/20/16 Yes doxycycline Adverse Reaction Mild gi upset 04/20/16 Yes Vital Signs Vital Signs Date Time Temp Pulse Resp B/P (MAP) Pulse Ox O2 Delivery O2 Flow Rate FiO2 10/18/18 08:20 Nasal Cannula 4.0 10/18/18 07:00 97.6 76 18 135/75 (95) 94 97.6 Lab Results Laboratory Tests Test 10/16/18 16:25 10/17/18 09:55 Lactic Acid Level 4.0 mmol/L (0.4-2.0) Urine Collection Type U bag Urine Color Yellow Urine Clarity Cloudy Urine pH 6.0 Urine Specific [place] 1.015 Urine Protein Negative mg/dL (NEG-TRACE) Urine Glucose (UA) 250 mg/dL (NEG) Urine Ketones (Stick) Negative mg/dL (NEG) Urine Blood Moderate (NEG) Urine Nitrite Negative (NEG) Urine Bilirubin Negative (NEG) Urine Urobilinogen Dipstick 0.2 mg/dL (0.2 mg/dL) Urine Leukocyte Esterase Negative (NEG) Urine RBC 3-5 /HPF (0-2) Urine WBC 5-10 /HPF (0-4) Urine Squamous Epithelial Cells Few /LPF Urine Bacteria Few /HPF (0-FEW) Urine Mucus Mod /LPF Brief Hospital Course he patient is a pleasant 63-year-old female who continues to smoke. She has COPD, presented to the ER today with shortness of breath, rated at 9/10. She has associated weakness and subjective fevers, productive cough. She tried taking some home meds, but that did not work. Describes it as agonizing, worse with moving. I discussed the case with the ER physician. We are going to admit the patient and give her IV antibiotics, breathing treatments, oxygen and steroids and consult Pulmonary. Hospital course: Patient responded very well to the therapy with IV antibiotics and steroids. She was seen in consultation by Dr. Rogers who recommended transitioning to oral medications. Patient very tearful during my encounter, apparently she had been in hospice before but she had a panic attack and cerebral calling her hospital course EMS was summoned which brought her to the hospital setting. The patient will be returning home with hospice care I have tried to provide as much reassurance as possible prior to departure patient seems less anxious and tearful towards the end of my encounter and she will be going home resuming hospice care. She will have antibiotics and steroids to complete a course of 5 days CONCERNS were addressed to the best of my abilities Physical exam cardiovascular: S1-S2 regular rhythm no murmurs gallops or rubs Respiratory good inspiratory effort no accessory muscle use and clear to auscultation Discharge Information Condition at Discharge: Improved Disposition/Orders: D/C to Home w/ Hospice Scheduled Albuterol Sulfate (Ventolin Hfa Inhaler) 18 Gm Hfa.aer.ad, 2 PUFF INH Q4HRS for FOR ASTHMA, Ref 0 (Reported) Entered as Reported by: Aubree Sinclair on 04/20/16 1433 Last Action: Converted on 10/16/181527 by RON PARIKH RN Albuterol Sulfate (Albuterol Sulfate Neb Soln) 2.5 Mg/3 Ml Vial.neb, 3 ML IH QID for SOA, (Reported) Entered as Reported by: MAY GONZALES on 08/14/181517 Last Action: Continued on 10/16/181527 by RON PARIKH RN Alendronate Sodium (Fosamax) 70 Mg Tablet, 1 TAB PO WEEKLY, #4 Ref 11 (Reported) Entered as Reported by: DIAMOND DIXON on 04/12/181515 Last Action: Converted on 10/16/181527 by RON PARIKH RN Brexpiprazole (Rexulti) 2 Mg Tablet, 2 MG PO DAILY, (Reported) Entered as Reported by: DIAMOND DIXON on 04/12/181515 Last Action: Converted on 10/16/181527 by RON PARIKH RN Budesonide/Formoterol Fumarate (Symbicort 160-4.5 Mcg Inhaler) 10.2 Gm Hfa.aer.ad, 2 PUFF IH BID, #10.6 Ref 3 (Reported) Entered as Reported by: COLLIN LEY on 04/20/16 1423 Last Action: Converted on 10/16/181527 by RON PARIKH RN Duloxetine Hcl (Duloxetine Hcl) 30 Mg Capsule.dr, 90 MG PO DAILY, (Reported) Entered as Reported by: DIAMOND DIXON on 04/12/181515 Last Action: Continued on 10/16/181527 by RON PARIKH RN Famotidine (Famotidine) 20 Mg Tablet, 20 MG PO QHS for stomach for 30 Days, #30 Prescribed by: JULIAN ORELLANA MD on 08/17/182 Last Action: Continued on 10/16/181527 by RON PARIKH RN Ipratropium [place] (Atrovent Hfa) 12.9 Gm Hfa.aer.ad, 2 PUFF IH QID, #12.9 Ref 5 (Reported) Entered as Reported by: Aubree Sinclair on 04/20/16 1433 Last Action: Converted on 10/16/181527 by RON PARIKH RN Lactobacillus Rhamnosus Gg (Culturelle) 1 Each Cap.sprink, 1 CAP PO BID for supplement for 14 Days, #28 Prescribed by: JULIAN ORELLANA MD on 08/17/182 Last Action: Continued on 10/16/181527 by RON PARIKH RN Levofloxacin (Levaquin) 500 Mg Tablet, 1 TAB PO DAILY for cough/ copd for 5 Days , #5 Prescribed by: FLORENCIO ROSARIO MD on 10/18/18 1121 Lorazepam (Lorazepam) 1 Mg Tablet, 1 MG PO DAILY, (Reported) Entered as Reported by: DIAMOND DIXON on 04/12/181515 Last Action: Continued on 10/16/181527 by RON PARIKH RN Prazosin Hcl (Prazosin Hcl) 2 Mg Capsule, 1 CAP PO QHS, #30 Ref 2 (Reported) Entered as Reported by: Aubree Sinclair on 04/20/16 1433 Last Action: Converted on 10/16/181527 by RON PARIKH RN Prednisone (Prednisone) 50 Mg Tablet, 1 TAB PO DAILY for copd for 5 Days, #5 Prescribed by: FLORENCIO ROSARIO MD on 10/18/18 1121 Sennosides/Docusate Sodium (Senna Plus Tablet) 1 Each Tablet, 1 TAB PO BID for constipation, (Reported) Entered as Reported by: MAY GONZALES on 08/14/181517 Last Action: Continued on 10/16/181527 by RON PARIKH RN Simvastatin (Simvastatin) 20 Mg Tablet, 20 MG PO QHS, (Reported) Entered as Reported by: Aubree Sinclair on 04/20/16 1433 Last Action: Converted on 10/16/181527 by RON PARIKH RN Trazodone Hcl (Trazodone Hcl) 150 Mg Tablet, 300 MG PO HS, #30 Ref 1 (Reported) Entered as Reported by: COLLIN LEY on 04/20/16 142 Last Action: Converted on 10/16/181527 by RON PARIKH RN Vortioxetine Hydrobromide (Trintellix) 10 Mg Tablet, 10 MG PO DAILY, (Reported) Entered as Reported by: DIAMOND DIXON on 04/12/181515 Last Action: Converted on 10/16/181527 by RON PARIKH RN [Nicotine 21MG] 1 PATCH PATCH, 1 PATCH TD DAILY for Nicotine dependence for 30 Days, #30 Prescribed by: DAYANNA PHAM MD on 08/25/18 1020 Last Action: Converted on 10/16/181527 by RON PARIKH RN Scheduled PRN Alprazolam (Alprazolam) 0.5 Mg Tablet, 1 TAB PO TID PRN for ANXIETY / AGITATION , #90 (Reported) Entered as Reported by: DIAMOND DIXON on 04/12/181515 Last Action: Continued on 10/16/181527 by RON PARIKH RN Benzonatate (Benzonatate) 200 Mg Capsule, 1 CAP PO TID PRN for COUGH, #30 ( Reported) Entered as Reported by: DIAMOND DIXON on 04/12/181515 Last Action: Converted on 10/16/181527 by RON PARIKH RN Ibuprofen (Ibuprofen) 600 Mg Tablet, 600 MG PO PRN Q6HRS PRN for INFLAMMATION, ( Reported) Entered as Reported by: COLLIN LEY on 04/20/16 1426 Last Action: Converted on 10/16/181527 by RON PARIKH RN Oxycodone/Apap 10-325 (Percocet 10-325 Mg Tablet ) 1 Each Tablet, 1 TAB PO PRN Q6HRS PRN for PAIN, #40 (Reported) Entered as Reported by: DIAMOND DIXON on 04/12/18 1516 Last Action: Continued on 10/16/181527 by RON PARIKH, RN Miscellaneous Medications Roflumilast (Daliresp) 500 Mcg Tablet, 500 MCG PO, (Reported) Entered as Reported by: Aubree Sinclair on 04/20/16 1433 Umeclidinium Brm/Vilanterol Tr (Anoro Ellipta 62.5-25 Mcg Inh) 1 Each Disk.w.dev , 62.5 EACH IH, (Reported) Entered as Reported by: COLLIN LEY on 04/20/16 1423 FLORENCIO ROSARIO MD Oct 18, 2018 11:25
--- NOTE | 2018-10-18 12:10 | NUR ---
JUSTIN following pt. JUSTIN phoned and faxed orders to hospice. Spoke with Negrita at hospice intake and confirmed they will restart services in the home. RN notified.
--- NOTE | 2018-10-18 12:48 | NUR ---
Discharge Note: KARENA PISANO Discharge instructions and discharge home medications reviewed with Patient and a copy given. All questions have been answered and understanding verbalized. The following instructions and handouts were given: discharge instructions Discontinued lines and drains: Peripheral IV intact. Patient discharged to Hospice with Friend via Wheelchair
--- NOTE | 2018-10-18 14:48 | RESP ---
DATE OF SERVICE: 10/18/2018 The patient underwent bedside spirometry on 10/18/2018. The FEV1 to FVC ratio was 56%, FEV1 was 540 mL or 20% of predicted, FVC was 960 mL or 27% of predicted. IMPRESSION: Severe air flow limitation. JUDY NICK MD DR: JOLENE/jaylan JOB#: [id number] / [id number]
[2018-10-23] MEDS ORDERED: NON FORMULARY ITEM (Alendronate Sodium (Fosamax) 1 TAB) PO SCH (09:00)
== END 2018-10-18 12:50 | disposition hospice, home (50) | DRG 871 ==
LOC: ER 10:29 → 5 NORTH 12:05
PROVIDERS: ADMIT Internal Medicine; ATTEND Internal Medicine
DX: A41.9 Sepsis, unspecified organism (principal); J18.9 Pneumonia, unspecified organism; J96.21 Acute and chronic respiratory failure with hypoxia; J44.1 Chronic obstructive pulmonary disease with (acute) exacerbation; J44.0 Chronic obstructive pulmonary disease with (acute) lower respiratory infection; F17.200 Nicotine dependence, unspecified, uncomplicated; G89.29 Other chronic pain; Z51.5 Encounter for palliative care; F32.9 Major depressive disorder, single episode, unspecified; Z99.81 Dependence on supplemental oxygen; Z79.899 Other long term (current) drug therapy; Z79.51 Long term (current) use of inhaled steroids; Z79.83 Long term (current) use of bisphosphonates; Z79.891 Long term (current) use of opiate analgesic; Z83.3 Family history of diabetes mellitus; Z88.1 Allergy status to other antibiotic agents; Z88.8 Allergy status to other drugs, medicaments and biological substances
CPT/HCPCS: 36415; 71045; 80053; 81001; 82553; 83605; 83880; 84484; 85025; 85610; 85730; 87040; 87086; 93005; 94010; 94640; 94760; 96361; 96374; J1956; J2930; J7030; J7512; J7620; J7626; 99285-25

== ENCOUNTER 2018-10-25 22:38 | Emergency (ER) | payer OTHER ==
[~2018-10-25] VITALS: Ht 162.6 cm; Wt 59.0 kg
--- NOTE | 2018-10-26 00:12 | RAD ---
PQRS Compliance statement: One or more of the following individualized dose reduction techniques were utilized for this examination: 1. Automated exposure control. 2. Adjustment of the mA and/or kV according to patient size. 3. Use of iterative reconstruction technique. Indication:fall, head injury TECHNIQUE: CT head without IV contrast COMPARISON:None FINDINGS: No pathologic extra-axial or intra-axial fluid collection. The ventricles and basal cisterns are within normal limits. 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 No acute intracranial bleed. No focal loss of diana-white differentiation. Orbits are within normal limits. No large scalp hematoma. No acute fractures. IMPRESSION: No acute findings. Electronically signed by: Wesley Espinoza DO (10/26/2018 12:09 AM) [facility]
--- NOTE | 2018-10-26 00:25 | PHYS DOC ---
Past Medical History Past Medical History: COPD, Depression, Sciatica Additional Past Medical Histor: "BACK PROBLEMS", TREMORS, EMPHYSEMA Past Surgical History: Other Additional Past Surgical Histo: breast tumor removal Alcohol Use: None Drug Use: None Adult General Chief Complaint Chief Complaint: ALTERED MENTAL STATUS HPI HPI Patient is a 63 year old female who presents with left elbow pain and head injury. Patient was recently switched to a liquid version of morphine. Uncertain as to whether she got too much and fell. Patient has end-stage COPD and is on hospice for this. She is on chronic home oxygen therapy. Increased pain with movement of the elbow. No neck pain. No nausea or vomiting. No chest pain, no syncope.[] Review of Systems Review of Systems Constitutional: Denies fever or chills [] Eyes: Denies change in visual acuity, redness, or eye pain [] HENT: Denies nasal congestion or sore throat [] Respiratory: Shortness of breath[] Cardiovascular: No chest pain or palpitations[] GI: Denies abdominal pain, nausea, vomiting, bloody stools or diarrhea [] : Denies dysuria or hematuria [] Musculoskeletal: Denies back pain, see history of present illness[] Integument: Denies rash or skin lesions [] Neurologic: Denies headache, focal weakness or sensory changes [] Endocrine: Denies polyuria or polydipsia [] All other systems were reviewed and found to be within normal limits, except as documented in this note. Allergies Allergies Allergies Coded Allergies Type Severity Reaction Last Updated Verified amoxicillin Adverse Reaction Mild gi upset 04/20/16 Yes clavulanic acid Adverse Reaction Mild gi upset 04/20/16 Yes doxycycline Adverse Reaction Mild gi upset 04/20/16 Yes Physical Exam Physical Exam Constitutional: Well developed, well nourished, no acute distress, non-toxic appearance. [] HENT: Normocephalic, atraumatic, bilateral external ears normal, oropharynx moist, no oral exudates, nose normal. [] Eyes: PERRLA, EOMI, conjunctiva normal, no discharge. [] Neck: Normal range of motion, no tenderness, supple, no stridor. [] Cardiovascular:Heart rate regular rhythm, no murmur [] Lungs & Thorax: Bilateral breath sounds clear to auscultation [] Abdomen: Bowel sounds normal, soft, no tenderness, no masses, no pulsatile masses. [] Skin: Warm, dry, no erythema, no rash. [] Back: No tenderness, no CVA tenderness. [] Extremities: Tenderness and abrasion over the left elbow, extensor surface. Full active range of motion, distally neurovascularly intact. A joint above and joined below were evaluated and were normal., no cyanosis, ROM intact, no edema. [] Neurologic: Alert and oriented X 3, normal motor function, normal sensory function, no focal deficits noted. [] Psychologic: Affect normal, judgement normal, mood normal. [] Current Patient Data Vital Signs Vital Signs Date Time Temp Pulse Resp B/P (MAP) Pulse Ox O2 Delivery O2 Flow Rate FiO2 10/25/18 23:12 98.3 85 22 102/57 (72) 96 Nasal Cannula 2.0 98.3 EKG EKG [] Radiology/Procedures Radiology/Procedures ECHNIQUE: CT head without IV contrast COMPARISON:None FINDINGS: No pathologic extra-axial or intra-axial fluid collection. The ventricles and basal cisterns are within normal limits. 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 No acute intracranial bleed. No focal loss of diana-white differentiation. Orbits are within normal limits. No large scalp hematoma. No acute fractures. IMPRESSION: No acute findings. Left elbow shows no acute fracture or dislocation[] Course & Med Decision Making Course & Med Decision Making Pertinent Labs and Imaging studies reviewed. (See chart for details) ED course: Patient arrived, was placed in bed, and tolerated exam well. She was transferred to and from [place] with any complications. Due to, and that she made per EMS regarding wanting EMSs morphine to kill herself, the PAT team was contacted for mental health evaluation. They felt that the patient was not a threat to herself or others. She was discharged in improved condition. Medical decision making: There is no evidence of self-harm nor threat of harm to others. There is no evidence of intracranial mass or bleed. No evidence of fracture of the bones of the elbow. [] Dragon Disclaimer Dragon Disclaimer This electronic medical record was generated, in whole or in part, using a voice recognition dictation system. Departure Departure Impression: Primary Impression: Closed head injury Additional Impression: Left elbow contusion Disposition: 01 HOME, SELF-CARE Condition: IMPROVED Referrals: MITZI PRICE MD (PCP) Follow-up in 2 days Patient Instructions: Elbow Contusion, Head Injury, Adult Additional Instructions: Follow-up with your regular doctor in 2 days. Return to the ER if worsening pain or any other concerns. Problem Qualifiers Primary Impression: Closed head injury Encounter type: initial encounter Qualified Codes: S09.90XA - Unspecified injury of head, initial encounter Additional Impression: Left elbow contusion Encounter type: initial encounter Qualified Codes: S50.02XA - Contusion of left elbow, initial encounter CORTNEY DIOP DO Oct 26, 2018 00:25
--- NOTE | 2018-10-26 04:51 | RAD ---
Indication: Fall with left elbow pain TECHNIQUE: 3 views of the left elbow COMPARISON: None FINDINGS: No acute fracture or dislocation. Small elbow joint effusion. IMPRESSION: No apparent acute fractures seen. Small elbow joint effusion. Occult radial head fracture not ruled out. Follow-up x-rays in 10-12 days recommended. Electronically signed by: Wesley Espinoza DO (10/26/2018 4:47 AM) [facility]
[2018-10-26 05:00] VITALS: BP 99/51
== END 2018-10-26 03:12 | disposition home or self-care (01) ==
LOC: ER 22:38
DX: S50.02XA Contusion of left elbow, initial encounter (principal); S09.8XXA Other specified injuries of head, initial encounter; J44.9 Chronic obstructive pulmonary disease, unspecified; Z88.1 Allergy status to other antibiotic agents; Z88.8 Allergy status to other drugs, medicaments and biological substances; W18.39XA Other fall on same level, initial encounter; Y93.89 Activity, other specified; Y92.89 Other specified places as the place of occurrence of the external cause; Y99.8 Other external cause status
CPT/HCPCS: 70450; 73080; 99284